=== PATIENT | female | born 1945 | race Caucasian/White ===

== ENCOUNTER 2018-10-14 11:25 | Emergency (ER) | payer MEDICARE ==
[~2018-10-14] VITALS: Ht 167.6 cm; Wt 81.7 kg
[~2018-10-14 11:25] MED LIST: ALBU3IS INH; ALBU90OI INH; ALEN70 PO; ASPI81CH PO; AZIT250; AZIT250 PO; BUDE6HFA INH; BUPR150ER; BUPR150ER PO; BUPR150ERA PO; CARV25 PO; CLOP75 PO; CODGUAEL PO; Carvedilol25 MG PO; Coumadin1 MG PO; ENOX80I SC; Flonase 0.05% N16 GM; GLIM2 PO; GLIM4; HYDCHL12.5 PO; LEVEMIR FL100 UNIT/1 SC; LOSA50 PO; LOSARTAN POTAS100 MG PO; METF500C PO; METO25; METPRE4DP; Metformin HCl1000 MG PO; OMEP20ER PO; PRED10; PRED10 PO; Pravastatin Sod80 MG PO; Prednisone20 MG PO; Questran4 GM PO; TIOT18 INH; TRAZ50 PO; Vibramycin100 MG PO
[2018-10-14 11:41] LABS: PO2 Arterial 148 mmHg (80-100); pH Blood Arterial 7.26 (7.35-7.45)
[2018-10-14 11:45] LABS: Calcium, Ionized (POC) 1.16 mmol/L (1.10-1.46); Chloride (POC) 102 mmol/L (98-108); Creatinine (POC) 1.6 mg/dL (0.6-1.0); Glucose (ISTAT POC) 385 mg/dL (70-99); Hemoglobin (POC) 15.3 g/dL (12.0-16.0); Potassium (POC) 5.6 mmol/L (3.5-5.5); Sodium (POC) 134 mmol/L (135-148); Total CO2 (POC) 23 mmol/L (21-32)
[2018-10-14 11:55] LABS: BASOPHILS ABSOLUTE AUTO 0.17 K/mm3 (0.00-0.23); BASOPHILS PERCENT AUTO 1 % (0-2); EOSINOPHILS ABSOLUTE AUTO 0.43 K/mm3 (0.00-0.68); EOSINOPHILS PERCENT AUTO 3 % (0-6); Hematocrit 44.1 % (33.0-51.0); Hemoglobin 14.6 g/dL (11.5-16.0); IMMATURE GRAN PERCENT AUTO 1 % (0-1); LYMPHOCYTES ABSOLUTE AUTO 2.04 K/mm3 (0.84-5.20); LYMPHOCYTES PERCENT AUTO 13 % (21-46); MONOCYTES ABSOLUTE AUTO 0.83 K/mm3 (0.16-1.47); MONOCYTES PERCENT AUTO 5 % (4-13); Mean Corpuscular HGB 30.9 pg (26.0-34.0); Mean Corpuscular HGB Conc 33.1 g/dL (31.5-36.5); Mean Corpuscular Volume 93 fL (80-100); Mean Platelet Volume 9.8 fL (9.1-12.4); NEUTROPHILS ABSOLUTE AUTO 12.75 K/mm3 (1.96-9.15); NEUTROPHILS PERCENT AUTO 78 % (41-73); Platelet Count 312 K/mm3 (150-400); RDW Standard Deviation 44.5 fL (35.1-46.3); Red Blood Cell Count 4.72 M/mm3 (3.80-5.20); White Blood Cell Count 16.32 K/mm3 (4.00-11.30)
[2018-10-14 12:13] LABS: Prothrombin Time Results 52.2 Sec (9.7-11.5)
[2018-10-14 12:15] LABS: Albumin, Blood 3.2 g/dL (3.4-5.0); Albumin/Globulin Ratio 0.8 (0.8-1.8); Bilirubin, Total 0.6 mg/dL (0.1-1.0); Bun/Creatinine Ratio 17.1 (12.0-20.0); Calcium, Blood 8.8 mg/dL (8.5-10.1); Creatinine, Blood 1.52 mg/dL (0.40-1.00); Globulin, Blood 3.9 g/dL (2.2-4.0); Potassium, Blood 5.5 mmol/L (3.5-5.5); Total Protein, Blood 7.1 g/dL (6.4-8.2)
[2018-10-14 12:25] LABS: International Normalized Ratio 5.78
[2018-10-14 12:39] LABS: Troponin I 1.34 ng/mL (0.000-0.040)
== END 2018-10-14 15:09 ==
LOC: ER 11:25
PROVIDERS: Emergency Medicine
DX: R09.2 Respiratory arrest (principal); Z88.2 Allergy status to sulfonamides; Z88.5 Allergy status to narcotic agent; Z79.899 Other long term (current) drug therapy; Z79.01 Long term (current) use of anticoagulants; Z79.82 Long term (current) use of aspirin; Z79.4 Long term (current) use of insulin; E11.9 Type 2 diabetes mellitus without complications; J44.9 Chronic obstructive pulmonary disease, unspecified; F17.200 Nicotine dependence, unspecified, uncomplicated
CPT/HCPCS: 31720; 36415; 36600; 51702; 70450; 71045; 80047; 80053; 82803; 82947; 83880; 84484; 85014; 85025; 85610; 93005; 93010; 94002; 94644; 96365; 96375; 99285-25; J1940; J2270; J7060